=== PATIENT | male | born 1990 | race Caucasian/White ===

== ENCOUNTER 2016-10-17 16:28 | Outpatient (CLI) | payer OTHER ==
--- NOTE | 2016-10-17 17:24 | DI ---
EXAM: Supine abdominal radiograph. HISTORY: Right flank pain. Decreased urine output. COMPARISON: None available. FINDINGS: Air and stool seen throughout the colon, including the rectum. No dilated bowel loops ar e seen. No masses or abnormal calcifications identified. Fat planes are maintained. Osseous struc tures are intact. IMPRESSION: No acute radiographic abnormality of the abdomen.
[2016-10-17 17:33] LABS: BILIRUBIN,URINE Negative (NEGATIVE); KETONES,URINE Trace (NEGATIVE); LEUKOCYTE ESTERASE ,URINE Negative (NEGATIVE); NITRITE,URINE Negative (NEGATIVE); PROTEIN,URINE Negative (NEGATIVE); URINE, BLOOD Negative (NEGATIVE)
[2016-10-17 17:37] LABS: ADD URINE MICROSCOPIC NO
== END 2016-10-17 16:29 | disposition home or self-care (01) ==
LOC: RAD 16:28
PROVIDERS: ATTEND Nurse Practitioner Family
DX: R34 Anuria and oliguria (principal); R10.9 Unspecified abdominal pain
CPT/HCPCS: 81001

== ENCOUNTER 2016-10-18 16:41 | Outpatient (CLI) | payer OTHER ==
[2016-10-18 17:14] LABS: BILIRUBIN,URINE Negative (NEGATIVE); KETONES,URINE Trace (NEGATIVE); LEUKOCYTE ESTERASE ,URINE Negative (NEGATIVE); NITRITE,URINE Negative (NEGATIVE); PROTEIN,URINE Negative (NEGATIVE); URINE, BLOOD Negative (NEGATIVE)
[2016-10-18 17:15] LABS: ADD URINE MICROSCOPIC NO
[2016-10-18 17:27] LABS: ALBUMIN 4.5 g/dL (3.4-5.0); ALBUMIN/GLOBULIN RATIO 1.18; BILIRUBIN,TOTAL 0.7 mg/dL (0.00-1.20); BUN/CREATININE RATIO 15.38; CALCIUM 9.9 mg/dL (8.2-10.2); CREATININE 1.3 mg/dL (0.60-1.10); TOTAL PROTEIN 8.3 g/dL (6.4-8.2)
== END 2016-10-18 16:42 | disposition home or self-care (01) ==
LOC: LAB 16:41
PROVIDERS: ATTEND Nurse Practitioner Family
DX: R82.4 Acetonuria (principal)
CPT/HCPCS: 36415; 80053; 81001

== ENCOUNTER 2016-11-03 11:21 | Outpatient (CLI) ==
[2016-11-03 11:51] LABS: ALBUMIN 4.4 g/dL (3.4-5.0); ALBUMIN/GLOBULIN RATIO 1.29; ANION GAP 12.8; BILIRUBIN,TOTAL 0.89 mg/dL (0.00-1.20); BUN/CREATININE RATIO 12.59; CALCIUM 9.6 mg/dL (8.2-10.2); CREATININE 1.27 mg/dL (0.60-1.10); POTASSIUM 3.8 mmol/L (3.5-5.1); TOTAL PROTEIN 7.8 g/dL (6.4-8.2)
[2016-11-03 12:27] LABS: BILIRUBIN,URINE Negative (NEGATIVE); KETONES,URINE Negative (NEGATIVE); LEUKOCYTE ESTERASE ,URINE Trace (NEGATIVE); NITRITE,URINE Negative (NEGATIVE); PROTEIN,URINE Trace (NEGATIVE); URINE, BLOOD Negative (NEGATIVE)
[2016-11-03 12:37] LABS: ADD URINE MICROSCOPIC YES
[2016-11-03 12:38] LABS: BACTERIA,URINE 2+ (NOT PRESENT)
== END 2016-11-03 11:22 | disposition home or self-care (01) ==
LOC: LAB 11:21
PROVIDERS: ATTEND Nurse Practitioner Family
DX: R79.9 Abnormal finding of blood chemistry, unspecified (principal); R82.4 Acetonuria
CPT/HCPCS: 36415; 80053; 81001

== ENCOUNTER 2016-11-06 08:46 | Outpatient (CLI) ==
[2016-11-06 08:54] LABS: BASOPHILS # (AUTO) 0.1 K/uL (0-0.2); BASOPHILS % (AUTO) 0.9 % (0.0-3.0); EOSINOPHILS # (AUTO) 0.5 K/ul (0.0-0.7); EOSINOPHILS % (AUTO) 8.5 % (0.0-7.0); HEMATOCRIT 44.2 % (42.0-52.0); HEMOGLOBIN 15.9 g/dl (14.0-18.0); IMMATURE GRANULOCYTE % (AUTO) 0.5 % (0.0-5.0); LYMPHOCYTES # (AUTO) 1.6 K/uL (0.60-3.4); LYMPHOCYTES % (AUTO) 29.8 (10.0-50.0); MEAN CORPUSCULAR HEMOGLOBIN 31.1 pg (27.0-31.0); MEAN CORPUSCULAR VOLUME 86.3 fl (80.0-94.0); MONOCYTES # (AUTO) 0.3 K/uL (0.4-2.0); MONOCYTES % (AUTO) 6.2 (0-10); NEUTROPHILS % (AUTO) 54.1; PLATELET COUNT 156 10^3/uL (140-440); RED BLOOD COUNT 5.12 10^6/ul (4.70-6.10); WHITE BLOOD COUNT 5.51 K/ul (4.2-10.2)
== END 2016-11-06 08:47 | disposition home or self-care (01) ==
LOC: LAB 08:46
PROVIDERS: ATTEND Nurse Practitioner Family
DX: R73.9 Hyperglycemia, unspecified (principal); N39.0 Urinary tract infection, site not specified
CPT/HCPCS: 36415; 83036; 85025

== ENCOUNTER 2017-01-11 10:36 | Outpatient (CLI) | payer OTHER ==
[2017-01-11 10:59] LABS: BASOPHILS % (AUTO) 0.8 % (0.0-3.0); EOSINOPHILS # (AUTO) 0.4 K/ul (0.0-0.7); EOSINOPHILS % (AUTO) 8.4 % (0.0-7.0); HEMATOCRIT 43.6 % (42.0-52.0); HEMOGLOBIN 15.7 g/dl (14.0-18.0); IMMATURE GRANULOCYTE % (AUTO) 0.4 % (0.0-5.0); LYMPHOCYTES # (AUTO) 1.2 K/uL (0.60-3.4); LYMPHOCYTES % (AUTO) 25.6 (10.0-50.0); MONOCYTES # (AUTO) 0.3 K/uL (0.4-2.0); MONOCYTES % (AUTO) 6.1 (0-10); NEUTROPHILS # (AUTO) 2.8 K/ul (2.0-6.9); NEUTROPHILS % (AUTO) 58.7; PLATELET COUNT 165 10^3/uL (140-440); RED BLOOD COUNT 5.07 10^6/ul (4.70-6.10); WHITE BLOOD COUNT 4.77 K/ul (4.2-10.2)
[2017-01-11 11:38] LABS: ALBUMIN 4.3 g/dL (3.4-5.0); ALBUMIN/GLOBULIN RATIO 1.19; ANION GAP 11.7; BILIRUBIN,TOTAL 0.89 mg/dL (0.00-1.20); BUN/CREATININE RATIO 11.71; CALCIUM 9.5 mg/dL (8.2-10.2); CHOL/HDL RATIO 3.8 (4.5-6.4); CREATININE 1.28 mg/dL (0.60-1.10); POTASSIUM 3.7 mmol/L (3.5-5.1); TOTAL PROTEIN 7.9 g/dL (6.4-8.2)
[2017-01-16 08:39] LABS: LAMICTAL (LAMOTRIGINE) 9.5 ug/mL (2.0-20.0)
== END 2017-01-11 10:37 | disposition home or self-care (01) ==
LOC: LAB 10:36
PROVIDERS: ATTEND Psychiatry & Neurology Neurology with Special Qualifications in Child Neurology
DX: G47.30 Sleep apnea, unspecified (principal)
CPT/HCPCS: 36415; 80053; 80061; 82542; 84436; 84443; 85025

== ENCOUNTER 2017-07-09 15:40 | Outpatient (CLI) ==
--- NOTE | 2017-07-09 17:01 | DI ---
Exam: Five x-rays of the lumbar spine. Comparison: None available. Reason for exam: Unspecified fall. FINDINGS: No acute fracture or malalignment. The vertebral body and intervertebral body disc space heights are well maintained. No significant arthrosis. There is mild straightening of the lumbar lo rdotic curve. Impression: No acute fracture or listhesis in the lumbar spine.
== END 2017-07-09 15:41 | disposition home or self-care (01) ==
LOC: RAD 15:40
PROVIDERS: ATTEND Nurse Practitioner Family
DX: M54.5 Low back pain (principal); W19.XXXA Unspecified fall, initial encounter; Y92.099 Unspecified place in other non-institutional residence as the place of occurrence of the external cause

== ENCOUNTER 2018-05-31 14:02 | Outpatient (CLI) | payer OTHER | END 2018-05-31 14:03 | disposition home or self-care (01) | LOC: CAR 14:02 | PROVIDERS: ATTEND Nurse Practitioner Family | DX: R07.89 Other chest pain (principal); R05 Cough | CPT/HCPCS: 93005; 93010 ==

== ENCOUNTER 2018-06-19 09:22 | Outpatient (CLI) | END 2018-06-19 09:23 | disposition home or self-care (01) | LOC: LAB 09:22 | PROVIDERS: ATTEND Psychiatry & Neurology Neurology with Special Qualifications in Child Neurology | DX: F63.9 Impulse disorder, unspecified (principal) | CPT/HCPCS: 36415; 80053; 80061; 82306; 82542; 84436; 84443; 85008; 85025 ==